=== PATIENT | male | born 1940 ===

== ENCOUNTER 2024-01-14 16:02 | Emergency (ER) | payer OTHER ==
[~2024-01-14] VITALS: Ht 177.8 cm; Wt 124.7 kg
[2024-01-14 17:55] LABS: BASOPHILS ABSOLUTE AUTO 0.05 K/mm3 (0.00-0.23); BASOPHILS PERCENT AUTO 1 % (0-2); EOSINOPHILS ABSOLUTE AUTO 0.19 K/mm3 (0.00-0.68); EOSINOPHILS PERCENT AUTO 3 % (0-6); Hematocrit 48.8 % (37.0-53.0); Hemoglobin 16.1 g/dL (13.5-17.5); IMMATURE GRAN ABSOLUTE AUTO 0.05 K/mm3 (0.00-0.10); IMMATURE GRAN PERCENT AUTO 1 % (0-1); LYMPHOCYTES ABSOLUTE AUTO 1.29 K/mm3 (0.84-5.20); LYMPHOCYTES PERCENT AUTO 17 % (21-46); MONOCYTES ABSOLUTE AUTO 0.71 K/mm3 (0.16-1.47); MONOCYTES PERCENT AUTO 9 % (4-13); Mean Corpuscular HGB 28.6 pg (26.0-34.0); Mean Corpuscular Volume 87 fL (80-100); Mean Platelet Volume 10.1 fL (9.1-12.4); NEUTROPHILS PERCENT AUTO 70 % (41-73); Platelet Count 151 K/mm3 (150-400); RDW Coefficient Variation 13.7 % (11.7-14.2); RDW Standard Deviation 43.4 fL (35.1-46.3); Red Blood Cell Count 5.63 M/mm3 (4.30-5.90); White Blood Cell Count 7.69 K/mm3 (4.00-11.30)
[2024-01-14 18:09] LABS: Influenza A, PCR NEGATIVE (NEGATIVE); Influenza B, PCR NEGATIVE (NEGATIVE); Resp Syncytial Virus, PCR NEGATIVE (NEGATIVE); SARS-Cov-2 (COVID-19) PCR, MMC NEGATIVE (NEGATIVE)
[2024-01-14 18:15] LABS: Albumin, Blood 3.5 g/dL (3.4-5.0); Bilirubin, Total 0.8 mg/dL (0.1-1.0); Bun/Creatinine Ratio 17.3 (12.0-20.0); Calcium, Blood 8.9 mg/dL (8.5-10.1); Creatinine, Blood 0.98 mg/dL (0.60-1.20); Globulin, Blood 3.6 g/dL (2.2-4.0); Potassium, Blood 3.9 mmol/L (3.5-5.5); Total Protein, Blood 7.1 g/dL (6.4-8.2)
[2024-01-14] MEDS ORDERED: Bacitracin Zinc Oint 1GRAM UD Packet TOP ONE (23:50)
== END 2024-01-15 00:17 | disposition home or self-care (01) ==
LOC: ER 16:02
PROVIDERS: Physician Assistant
DX: R60.0 Localized edema (principal); R06.02 Shortness of breath
CPT/HCPCS: 0241U; 71046; 80053; 83880; 84484; 85025; 93005; 93010; 99285-25

== ENCOUNTER 2024-04-28 15:01 | Inpatient (IN) | payer OTHER ==
[~2024-04-28] VITALS: Ht 182.9 cm; Wt 135.5 kg
[2024-04-28 15:30] VITALS: BP 165/79
[2024-04-28] MEDS ORDERED: Acetaminophen 325 MG TABLET PO PRN (16:05)
[2024-04-28] MEDS ORDERED: Furosemide 10 MG/ML 4ML Vial IV SCH (17:00)
[2024-04-28 17:09] LABS: BASOPHILS ABSOLUTE AUTO 0.03 K/mm3 (0.00-0.23); BASOPHILS PERCENT AUTO 0 % (0-2); EOSINOPHILS ABSOLUTE AUTO 0.18 K/mm3 (0.00-0.68); EOSINOPHILS PERCENT AUTO 2 % (0-6); Hematocrit 51.1 % (37.0-53.0); Hemoglobin 16.2 g/dL (13.5-17.5); IMMATURE GRAN ABSOLUTE AUTO 0.03 K/mm3 (0.00-0.10); IMMATURE GRAN PERCENT AUTO 0 % (0-1); LYMPHOCYTES ABSOLUTE AUTO 1.36 K/mm3 (0.84-5.20); LYMPHOCYTES PERCENT AUTO 17 % (21-46); MONOCYTES ABSOLUTE AUTO 0.79 K/mm3 (0.16-1.47); MONOCYTES PERCENT AUTO 10 % (4-13); Mean Corpuscular HGB 28.9 pg (26.0-34.0); Mean Corpuscular HGB Conc 31.7 g/dL (31.5-36.5); Mean Corpuscular Volume 91 fL (80-100); Mean Platelet Volume 10.4 fL (9.1-12.4); NEUTROPHILS ABSOLUTE AUTO 5.63 K/mm3 (1.96-9.15); NEUTROPHILS PERCENT AUTO 70 % (41-73); Platelet Count 124 K/mm3 (150-400); RDW Coefficient Variation 13.9 % (11.7-14.2); RDW Standard Deviation 46.7 fL (35.1-46.3); White Blood Cell Count 8.02 K/mm3 (4.00-11.30)
[2024-04-28 17:29] LABS: Magnesium, Blood 2.2 mg/dL (1.6-2.4)
[2024-04-28 17:30] LABS: Thyroid Stimulating Hormone 2.3 uIU/mL (0.360-4.800)
--- NOTE | 2024-04-28 18:00 | NUR ---
SHIFT SUMMARY PATIENT ADMITTED TO MEDICAL FLOOR. PATIENT ALERT AND INTERACTIVE BUT [place] AND FORGETFUL. PATIENT REPEATEDLY ASKING WHEN HE IS GOING BACK HOME. PATIENT EASILY SOB. PATIENT STATES THAT HE USES HIS CPAP BLOW BY WHEN HE NEEDS AIR. PATIENT ALSO REPORTS THAT HE USES A LOT OF SALT WITH HIS MEALS. EDUCATION PROVIDED RELATED TO SALT INTAKE AND FLUID INTAKE. WILL HAVE RT WORK WITH PATIENT ON PROPER USE OF CPAP.
[2024-04-28] MEDS ORDERED: Albuterol 2.5 MG/3 ML VIAL INH PRN (18:15)
[2024-04-28 19:52] VITALS: BP 155/88
[2024-04-28 19:56] VITALS: BP 147/88
[2024-04-28 19:57] LABS: Albumin, Blood 3.2 g/dL (3.4-5.0); Albumin/Globulin Ratio 0.9 (0.8-1.8); Bun/Creatinine Ratio 14.1 (12.0-20.0); Calcium, Blood 8.9 mg/dL (8.5-10.1); Creatinine, Blood 0.92 mg/dL (0.60-1.20); Globulin, Blood 3.5 g/dL (2.2-4.0); Potassium, Blood 4.7 mmol/L (3.5-5.5); Total Protein, Blood 6.7 g/dL (6.4-8.2)
[2024-04-28] MEDS ORDERED: Apixaban 5 MG Tab PO SCH (21:00)
[2024-04-28] MEDS ORDERED: QUEtiapine Fumarate 25 MG Tab PO SCH (21:00)
[2024-04-28] MEDS ORDERED: Haloperidol Lactate Inj. 5 MG/ML Injection IV ONE (21:45)
[2024-04-28] MEDS ORDERED: Haloperidol Lactate Inj. 5 MG/ML Injection IV PRN (21:45)
[2024-04-28 21:46] VITALS: BP 171/119
--- NOTE | 2024-04-28 23:11 | NUR ---
Aggitation: Orders were obtained from Doctor Garcia for a now dose of haldol. Patient was calmly sitting on the bed with his gowned of. Patient was told that Dr Garcia had ordered some medication to calm him down. Patient agreed to administration of haldol. Patient was then assisted to the bathroom to void, he refused to use the urinal at the bedside. Sitter has patient in constant observation.
--- NOTE | 2024-04-29 04:05 | NUR ---
Aggitation: Patient was sitting on the edge of the bed putting his pants on and asking for help with his shoes. Patient is getting dressed so he is ready to leave when the doctor comes in the morning. Insurance Follow Up Specialist attempted to give a PRN dose of haldol. Patient refuses haldol and states "I will stay until the doctor comes in the morning". A recliner is brought into the room as the patient refuses to lay down in the bed and is sitting on the edge of the bed. Maurice has patient in eye site at all times. Patient also refuses continuos pulse OX and telemetry at this time.
--- NOTE | 2024-04-29 04:37 | NUR ---
Refusal of care: Patient is refusing AM labs. Patient is fully dressed and sitting on the edge of the bed. Sitter has patient in sight at all times.
[2024-04-29 07:50] VITALS: BP 147/87
[2024-04-29 07:51] VITALS: BP 147/87
[2024-04-29 08:56] LABS: BASOPHILS ABSOLUTE AUTO 0.03 K/mm3 (0.00-0.23); BASOPHILS PERCENT AUTO 0 % (0-2); EOSINOPHILS ABSOLUTE AUTO 0.06 K/mm3 (0.00-0.68); EOSINOPHILS PERCENT AUTO 1 % (0-6); Hematocrit 51.7 % (37.0-53.0); Hemoglobin 16.8 g/dL (13.5-17.5); IMMATURE GRAN ABSOLUTE AUTO 0.02 K/mm3 (0.00-0.10); IMMATURE GRAN PERCENT AUTO 0 % (0-1); LYMPHOCYTES ABSOLUTE AUTO 1.02 K/mm3 (0.84-5.20); LYMPHOCYTES PERCENT AUTO 11 % (21-46); MONOCYTES ABSOLUTE AUTO 0.93 K/mm3 (0.16-1.47); MONOCYTES PERCENT AUTO 10 % (4-13); Mean Corpuscular HGB Conc 32.5 g/dL (31.5-36.5); Mean Corpuscular Volume 89 fL (80-100); Mean Platelet Volume 10.4 fL (9.1-12.4); NEUTROPHILS PERCENT AUTO 79 % (41-73); Platelet Count 149 K/mm3 (150-400); RDW Coefficient Variation 13.9 % (11.7-14.2); RDW Standard Deviation 45.7 fL (35.1-46.3); Red Blood Cell Count 5.79 M/mm3 (4.30-5.90); White Blood Cell Count 9.76 K/mm3 (4.00-11.30)
[2024-04-29] MEDS ORDERED: Empagliflozin 10 MG TAB PO SCH (09:00)
[2024-04-29] MEDS ORDERED: Tamsulosin HCl 0.4 MG Cap PO SCH (09:00)
[2024-04-29 09:11] LABS: Bun/Creatinine Ratio 15.3 (12.0-20.0); Calcium, Blood 8.9 mg/dL (8.5-10.1); Creatinine, Blood 0.92 mg/dL (0.60-1.20); Potassium, Blood 3.6 mmol/L (3.5-5.5)
[2024-04-29 19:01] VITALS: BP 127/83
--- NOTE | 2024-04-29 19:52 | NUR ---
DAY SHIFT SUMMARY: A&Ox1-2. 1:1 SITTER AND CONTINUED TO ATTEMPT TO WANDER HALLS, OFTEN WITH PANTS FALLING AROUND HIS ANKLES. TELE KEPT NEEDIN GOT BE REAPPLIED. REQUIRES FREQUENT REDIRECTION AND REMINDERS. FIXATED ON GETTING MONEY OUT OF BANK AND NEW UNDERWEAR. SHOWERED TODAY DUE. POLYURIA WITH FREQUENCY AND URGENCY SECONDARY TO IV FUROSEMIDE x2. REFUSES CONDOM CATH. ENJOYS PEOPLE-WATCHING, SHARRI VIRAMONTES RN WITH THE [facility]. REFUSED LUNCH BUT ATE DINNER. ECHO COMPLETED AND CARDIOLOGY CONSULTED. LARGE, HARD, EDEMATOUS BRUISE NOTED TO LEFT HIP. DR SHARP NOTIFIED. REPORT TO ONCOMING RN.
--- NOTE | 2024-04-29 23:53 | NUR ---
PT A&Ox1 AND BELIEVES HE IS AT THE [facility]. NOT ABLE TO BE REORIENTED AT THIS TIME. PT INSISTS HE CAN STAY FOR "A LITTLE LONGER" BUT THAT HE IS GOING HOME "BY 10", THIS EVENING. COOPERATIVE OF CARE BUT LIABLE. 4+ BLE EDEMA. 1:1 SITTER AT BEDSIDE. PT MOVED TO ROOM 350 IN SCU. ALL BELONGINGS SENT WITH PT. REPORT GIVEN TO JEFFREY.
[2024-04-30 03:53] VITALS: BP 145/67
--- NOTE | 2024-04-30 04:54 | NUR ---
SHIFT SUMMARY DANITZA WAS ALERT AND ORIENTED TO SELF ONLY WHEN HE WAS TRANSFERED TO MY CARE AROUND 2100. PT IS VERY EDEMATOUS. 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 PT WAS CONFUSED BUT DIRECTABLE THIS SHIFT AND SLEPT SOUNDLY T/O THE NIGHT. NO ACUTE EVENTS, PT SLEEPING IN BED AT A LOW POSITION WITH CALL LIGHT IN REACH WHICH HE DOES NOT USE APPROPRIATELY. PT WAS CONTINENT AND STOOD TO USE URINAL AT BEDSIDE WITH FWW AND 1 ASSIST.
[2024-04-30 07:49] VITALS: BP 136/75
[2024-04-30] MEDS ORDERED: Carvedilol 3.125 MG Tab PO SCH (09:15)
[2024-04-30 09:22] LABS: BASOPHILS ABSOLUTE AUTO 0.03 K/mm3 (0.00-0.23); BASOPHILS PERCENT AUTO 0 % (0-2); EOSINOPHILS ABSOLUTE AUTO 0.18 K/mm3 (0.00-0.68); EOSINOPHILS PERCENT AUTO 2 % (0-6); Hematocrit 47.5 % (37.0-53.0); IMMATURE GRAN ABSOLUTE AUTO 0.05 K/mm3 (0.00-0.10); IMMATURE GRAN PERCENT AUTO 1 % (0-1); LYMPHOCYTES ABSOLUTE AUTO 1.17 K/mm3 (0.84-5.20); LYMPHOCYTES PERCENT AUTO 12 % (21-46); MONOCYTES ABSOLUTE AUTO 0.65 K/mm3 (0.16-1.47); MONOCYTES PERCENT AUTO 7 % (4-13); Mean Corpuscular HGB 28.8 pg (26.0-34.0); Mean Corpuscular HGB Conc 31.6 g/dL (31.5-36.5); Mean Corpuscular Volume 91 fL (80-100); Mean Platelet Volume 10.5 fL (9.1-12.4); NEUTROPHILS ABSOLUTE AUTO 7.35 K/mm3 (1.96-9.15); NEUTROPHILS PERCENT AUTO 78 % (41-73); Platelet Count 131 K/mm3 (150-400); RDW Standard Deviation 46.8 fL (35.1-46.3); White Blood Cell Count 9.43 K/mm3 (4.00-11.30)
[2024-04-30 10:02] LABS: Bun/Creatinine Ratio 20.8 (12.0-20.0); Calcium, Blood 8.7 mg/dL (8.5-10.1); Creatinine, Blood 0.92 mg/dL (0.60-1.20); Potassium, Blood 3.5 mmol/L (3.5-5.5)
--- NOTE | 2024-04-30 15:50 | NUR ---
SHIFT SUMMARY: PATIENT A/O TO SELF ONLY, CONFUSED AT TIMES, ABLE TO FOLLOW SIMPLE COMMAND, PLEASANT AND COOPERATIVE c CARE. PATIENT DENIES CP/PRESSURE, SOB, DIZZINESS AND GENERALIZED PAIN. PATIENT ON TELE, AFIB HR IN THE 80'S BPM c OCCASIONAL BBB. PATIENT HAS PLUS 3 EDEMA TO BLE, TRACES TO BUE'S, RECEIVED IV LASIX, CONT/INCON OF BLADDER, USES URINAL c ASSISTANCE AND AMBULATES TO BATHROOM/BACK IN BED c 1 ASSIST/FWW/GAITBELT. PATIENT HAD PT EVAL TODAY. PT RECOMMENDING SERVICES. PATIENT HAS 1:1 SITTER FOR SAFETY. PATIENT IS EATING AND DRINKING WELL. RECEIVED SCHEDULED MEDS PER EMAR. VITAL SIGNS REVIEWED. PATIENT LAYING IN BED AT THIS TIME c BLE'S ELEVATED ON PILLOWS. BED ALARM ON FOR SAFETY. CALL LIGHT IN REACH.
[2024-04-30 17:42] VITALS: BP 145/67
[2024-04-30 20:03] VITALS: BP 121/69
--- NOTE | 2024-05-01 04:36 | NUR ---
SHIFT SUMMARY PATIENT IS ALERT AND ORIENTED X2. PATIENT HAS HAD NO ACUTE EVENTS THIS SHIFT. PATIENT IS BEING DIUREASED. PATIENT HAS BEEN USING URINAL WITH ASSISTANCE. PATIENT IS ON TELE, AFIB WITH RATE IN THE 90S. PATIENT HAS BEEN CONFUSED BUT IS REDIRECTABLE. PATIENT HAS HAD NO COMPLAINTS OF PAIN, NAUSEA, SOB, OR VOMITTING THIS SHIFT. BED IN LOCKED AND LOWEST POSITION. CALL LIGHT IN PLACE. WILL MONITOR UNTIL SHIFT CHANGE.
[2024-05-01 05:23] VITALS: BP 124/77
[2024-05-01 05:35] LABS: BASOPHILS ABSOLUTE AUTO 0.04 K/mm3 (0.00-0.23); BASOPHILS PERCENT AUTO 0 % (0-2); EOSINOPHILS ABSOLUTE AUTO 0.29 K/mm3 (0.00-0.68); EOSINOPHILS PERCENT AUTO 3 % (0-6); Hematocrit 45.6 % (37.0-53.0); Hemoglobin 14.3 g/dL (13.5-17.5); IMMATURE GRAN ABSOLUTE AUTO 0.05 K/mm3 (0.00-0.10); IMMATURE GRAN PERCENT AUTO 0 % (0-1); LYMPHOCYTES ABSOLUTE AUTO 1.16 K/mm3 (0.84-5.20); LYMPHOCYTES PERCENT AUTO 10 % (21-46); MONOCYTES ABSOLUTE AUTO 1.12 K/mm3 (0.16-1.47); MONOCYTES PERCENT AUTO 10 % (4-13); Mean Corpuscular HGB 28.9 pg (26.0-34.0); Mean Corpuscular HGB Conc 31.4 g/dL (31.5-36.5); Mean Corpuscular Volume 92 fL (80-100); Mean Platelet Volume 10.8 fL (9.1-12.4); NEUTROPHILS ABSOLUTE AUTO 8.52 K/mm3 (1.96-9.15); NEUTROPHILS PERCENT AUTO 76 % (41-73); Platelet Count 137 K/mm3 (150-400); RDW Standard Deviation 47.7 fL (35.1-46.3); Red Blood Cell Count 4.94 M/mm3 (4.30-5.90); White Blood Cell Count 11.18 K/mm3 (4.00-11.30)
[2024-05-01 05:55] LABS: Bun/Creatinine Ratio 21.3 (12.0-20.0); Calcium, Blood 8.9 mg/dL (8.5-10.1); Creatinine, Blood 1.08 mg/dL (0.60-1.20); Potassium, Blood 3.3 mmol/L (3.5-5.5)
[2024-05-01 07:12] VITALS: BP 132/72
--- NOTE | 2024-05-01 07:31 | NUR ---
AM NOTE: PATIENT K 3.3 SLIGHTLY DOWN FROM YESTERDAY. NOTIFIED DR. SHARP. PER DR. SHARP SHE WILL PUT ORDER IN.
[2024-05-01] MEDS ORDERED: Potassium Chloride 20 MEQ TabCR PO SCH (09:00)
[2024-05-01 14:55] VITALS: BP 142/75
--- NOTE | 2024-05-01 15:48 | NUR ---
SHIFT SUMMARY: PATIENT A/O TO SELF, PLEASANTLY CONFUSED AND EASILY REDIRECTABLE. PATIENT EDEMA TO BLE'S HAS IMPROVED, DIURESED c IV LASIX PER EMAR, RESPONDING WELL. PATIENT DENIES CP/PRESSURE, DIZZINESS, N/V AND GENEARLIZED PAIN. PATIENT STILL ON TELE, AFIB HR IN THE HIGH 80'S BPM. PATIENT K 3.[address] AM[address] SHARP STARTED PATIENT ON PO K TODAY, REPEAT LAB IN AM. PATIENT CONTINENCE OF BOWEL/BLADDER, AMBULATES TO BATHROOM c 1 ASSIST/FWW. PATIENT UP IN THE CHAIR AND STAYED ABOUT 4 HRS TOTAL THIS SHIFT, TOLERATED WELL. PATIENT RESTING IN BED ON/OFF c BLE'S ELEVATED ON PILLOWS T/O SHIFT. PATIENT HAS 1:1 SITTER FOR SAFETY. VITAL SIGNS REVIEWED. PATIENT HAS NO COMPLAINTS OR DENIES NEW CONCERNED THIS SHIFT. CALL LIGHT IN REACH.
--- NOTE | 2024-05-01 17:43 | NUR ---
ADDITIONAL NOTE: PATIENT ON 2L O2 VIA NC c SPO2 ABOVE 90%. LUNGS DIM T/O TO AUSCULTATION.
[2024-05-01 19:54] VITALS: BP 123/84
--- NOTE | 2024-05-02 03:36 | NUR ---
ACADEMIC AFFAIRS MANAGER SUMMARY VSS. ORIENTED TO SELF, VERBAL RESPONSE SOMEWHAT CONFUSED. MED TELE AFIB. O2 AT 2L PER NC. HOB ELEVATED FOR COMFORT AND BREATHING. 1:1 SITTER AT BEDSIDE - HX FALLS. 1200 CC H2O FLUID RESTRICTION CONTINUES HE IS BEING DIURESED, SWELLING/ EDEMA OF BLE 2-3+. MED TELE AFIB. HAS BEEN RESTING QUIETLY WITH FEW INTERRUPTIONS. HOB REMAINS ELEVATED FOR RESP COMFORT. CALL LIGHT IN REACH, RAILS UP X 3 AND BED IN LOW POSITION FOR SAFETY. WILL CONTINUE TO MONITOR.
[2024-05-02 05:00] VITALS: BP 141/87
[2024-05-02 05:25] LABS: BASOPHILS ABSOLUTE AUTO 0.01 K/mm3 (0.00-0.23); BASOPHILS PERCENT AUTO 0 % (0-2); EOSINOPHILS ABSOLUTE AUTO 0.18 K/mm3 (0.00-0.68); EOSINOPHILS PERCENT AUTO 2 % (0-6); Hematocrit 44.3 % (37.0-53.0); Hemoglobin 13.9 g/dL (13.5-17.5); IMMATURE GRAN ABSOLUTE AUTO 0.05 K/mm3 (0.00-0.10); IMMATURE GRAN PERCENT AUTO 0 % (0-1); LYMPHOCYTES ABSOLUTE AUTO 1.02 K/mm3 (0.84-5.20); LYMPHOCYTES PERCENT AUTO 9 % (21-46); MONOCYTES ABSOLUTE AUTO 1.17 K/mm3 (0.16-1.47); MONOCYTES PERCENT AUTO 10 % (4-13); Mean Corpuscular HGB Conc 31.4 g/dL (31.5-36.5); Mean Corpuscular Volume 93 fL (80-100); NEUTROPHILS ABSOLUTE AUTO 8.78 K/mm3 (1.96-9.15); NEUTROPHILS PERCENT AUTO 78 % (41-73); Platelet Count 141 K/mm3 (150-400); RDW Coefficient Variation 13.9 % (11.7-14.2); RDW Standard Deviation 47.8 fL (35.1-46.3); Red Blood Cell Count 4.79 M/mm3 (4.30-5.90); White Blood Cell Count 11.21 K/mm3 (4.00-11.30)
[2024-05-02 05:56] LABS: Bun/Creatinine Ratio 27.3 (12.0-20.0); Calcium, Blood 8.9 mg/dL (8.5-10.1); Creatinine, Blood 0.99 mg/dL (0.60-1.20); Potassium, Blood 3.4 mmol/L (3.5-5.5)
[2024-05-02 07:49] VITALS: BP 118/76
[2024-05-02 14:42] VITALS: BP 138/65
--- NOTE | 2024-05-02 16:35 | NUR ---
SHIFT SUMMARY: PATIENT A/O TO SELF ONLY, PLEASANTLY CONFUSED AND EASILY REDIRECTABLE. PATIENT HEMATOMA TO L HIP HAS SPREAD. DR. THOMAS (ORTHO) WAS CONSULTED AND ORDERED CT c CONTRAST TO SITE. CT RESULT IS AVAILABLE FOR REVIEW, AWAITING FOR DR. THOMAS TO SEE PATIENT FOR CONSULT. PATIENT EDEMA TO BLE'S HAS IMPROVED AND IS BEING DIURESED c IV LASIX, CONDOM CATH IN PLACED, CONNECTED TO BOATENG BAG AND TOLERATING WELL. PATIENT HAD 3 LARGE SOFT, BROWN BM THIS SHIFT. PATIENT STILL ON 2L O2 VIA NC SAT ABOVE 90%. PATIENT DENIES CP/PRESSURE, N/V AND DIZZINESS. PATIENT ON TELE, AFIB HR IN THE HIGH 80'S BPM c OCCASIONAL PVC. VITAL SIGNS REVIEWED. PATIENT HAS 1:1 CLINICAL SITTER, BED ALARM ON FOR SAFETY. CALL LIGHT IN REACH.
[2024-05-02 20:41] VITALS: BP 126/71
--- NOTE | 2024-05-02 21:34 | NUR ---
TOOK OVER FOR PRIMARY NURSE WHEN HE TOOK HIS BREAK. PT DENIES NEEDS AT THIS TIME.
[2024-05-03] MEDS ORDERED: JARDIANCE10 MG PO (02:20)
[2024-05-03] MEDS ORDERED: CARV6.25 PO (02:20)
[2024-05-03] MEDS ORDERED: FURO20 PO (02:21)
[2024-05-03] MEDS ORDERED: SPIR25 PO (02:21)
[2024-05-03] MEDS ORDERED: POTCHL20ER PO (02:21)
[2024-05-03] MEDS ORDERED: QUET25 PO (02:22)
[2024-05-03] MEDS ORDERED: ELIQUIS5 M2 PO (02:22)
[2024-05-03] MEDS ORDERED: TAMS.4ER PO (02:22)
--- NOTE | 2024-05-03 04:10 | NUR ---
HORIZONTAL DRILL OPERATOR SUMMARY RESPS ELEVATED, OTHERWISE VSS. SATS IN 90'S. LUNG SOUNDS DIMINIISHED. REMAINS ON 1200 CC H2O RESTRICTION FOR CHF AND SEVERE EDEMA. DIURESING. ANGRY RE FLUID RESTRICTION. STAFF CONTINUE TO DISCUSS, TEACH RE RESTRICTION, ETC, BUT PT EASILY AGITATED TO COMPLY. HAS BEEN RESTING WITH OCCASIONAL INTERUPTION. O2 PER NC AT 2L/MIN PER NC. MED TELE AFIB IN THE 70'S. CALL LIGHT IN REACH, RAILS UP X 3, BED IN LOW POSITION AND 1:1 STAFF OBSERVATION FOR SAFETY. WILL CONTINUE TO WORK WITH PT FOR HIS HEALTH AND SAFETY.
--- NOTE | 2024-05-03 04:22 | NUR ---
ASSUMED CARE OF PT WHILE PRIMARY RN ON BREAK. PT KEEPS YELLING THAT HE IS THIRSTY AND WANTS WATER. SAT WITH PT AND DISCUSSED WHY HE IS ON STRICK FLUID RESTRICTION AND WHEN HE WOULD BE ABLE TO DRINK AGAIN. ASKED PT IF HE WOULD LIKE A TOOTHETTE DIPPED IN WATER TO WET HIS MOUTH. PT AGREED. PT SAID HE WOULD TRY TO GET SOME SLEEP AFTER THAT. PT RESTING IN BED.
[2024-05-03 04:42] VITALS: BP 119/82
[2024-05-03 04:45] LABS: BASOPHILS ABSOLUTE AUTO 0.03 K/mm3 (0.00-0.23); BASOPHILS PERCENT AUTO 0 % (0-2); EOSINOPHILS ABSOLUTE AUTO 0.18 K/mm3 (0.00-0.68); EOSINOPHILS PERCENT AUTO 2 % (0-6); Hematocrit 42.8 % (37.0-53.0); Hemoglobin 13.4 g/dL (13.5-17.5); IMMATURE GRAN ABSOLUTE AUTO 0.04 K/mm3 (0.00-0.10); IMMATURE GRAN PERCENT AUTO 0 % (0-1); LYMPHOCYTES ABSOLUTE AUTO 1.04 K/mm3 (0.84-5.20); LYMPHOCYTES PERCENT AUTO 10 % (21-46); MONOCYTES ABSOLUTE AUTO 1.01 K/mm3 (0.16-1.47); MONOCYTES PERCENT AUTO 10 % (4-13); Mean Corpuscular HGB 28.8 pg (26.0-34.0); Mean Corpuscular HGB Conc 31.3 g/dL (31.5-36.5); Mean Corpuscular Volume 92 fL (80-100); Mean Platelet Volume 10.6 fL (9.1-12.4); NEUTROPHILS ABSOLUTE AUTO 8.25 K/mm3 (1.96-9.15); NEUTROPHILS PERCENT AUTO 78 % (41-73); Platelet Count 167 K/mm3 (150-400); RDW Coefficient Variation 13.9 % (11.7-14.2); RDW Standard Deviation 47.2 fL (35.1-46.3); Red Blood Cell Count 4.65 M/mm3 (4.30-5.90); White Blood Cell Count 10.55 K/mm3 (4.00-11.30)
[2024-05-03 05:04] LABS: Bun/Creatinine Ratio 27.1 (12.0-20.0); Calcium, Blood 8.8 mg/dL (8.5-10.1); Creatinine, Blood 0.89 mg/dL (0.60-1.20); Potassium, Blood 3.3 mmol/L (3.5-5.5)
[2024-05-03 07:25] VITALS: BP 132/78
[2024-05-03] MEDS ORDERED: CeFAZolin Sodium 1,000 MG in NS 50 ML IV SCH (13:22)
[2024-05-03 15:41] VITALS: BP 142/80
--- NOTE | 2024-05-03 18:29 | NUR ---
SHIFT SUMMARY A&OX2, COOPERATIVE AND REDIRECTABLE. DENIED ANY CP/PRESSURE, HEADACHE, DIZZINESS, OR SOB. CURRENTLY ON 2L O2 VIA NC, SATS >92%. DENIES ANY PAIN THIS SHIFT. NO ACUTE EVENTS. LUNG SOUNDS DIM T/O. TELE DC'D. 1:1 SITTER DC'D. PATIENT CALLING APPROPRIATELY AND NOT SHOWING SIGNS OF AGGRESSION AT THIS TIME. BED ALARM ON. PATIENT CURRENTLY SLEEPING. BED IN THE LOWEST POSITION. CALL LIGHT WITHIN REACH.
[2024-05-03 19:30] VITALS: BP 155/92
[2024-05-03] MEDS ORDERED: Lactobacil 2-S.Thermo-Bifido 1 1 Cap PO SCH (21:00)
--- NOTE | 2024-05-03 23:13 | NUR ---
VERY AGITATED, UNSTEADY ON FEET, REFUSED TO USE WALKER, THREW URINAL AT NURSE. HIGH POTENTIAL FOR FALLS, HX OF FALLS. MD NOTIFIED AND ORDER FOR MIRNA OBTAINED AND APPLIED. CONDOM CATH APPLIED FOR URINE MONITORING. CALL LIGHT IN REACH. WILL CONT TO MONITOR.
[2024-05-04] MEDS ORDERED: Melatonin 5 MG Tablet PO SCH (01:00)
[2024-05-04] MEDS ORDERED: LORazepam 2 MG/ML 1ML Injection IV ONE (01:30)
[2024-05-04 03:57] VITALS: BP 163/85
[2024-05-04 04:33] LABS: BASOPHILS ABSOLUTE AUTO 0.03 K/mm3 (0.00-0.23); BASOPHILS PERCENT AUTO 0 % (0-2); EOSINOPHILS ABSOLUTE AUTO 0.09 K/mm3 (0.00-0.68); EOSINOPHILS PERCENT AUTO 1 % (0-6); Hematocrit 44.9 % (37.0-53.0); Hemoglobin 14.2 g/dL (13.5-17.5); IMMATURE GRAN ABSOLUTE AUTO 0.04 K/mm3 (0.00-0.10); IMMATURE GRAN PERCENT AUTO 0 % (0-1); LYMPHOCYTES ABSOLUTE AUTO 0.98 K/mm3 (0.84-5.20); LYMPHOCYTES PERCENT AUTO 9 % (21-46); MONOCYTES ABSOLUTE AUTO 1.11 K/mm3 (0.16-1.47); MONOCYTES PERCENT AUTO 10 % (4-13); Mean Corpuscular HGB 29.1 pg (26.0-34.0); Mean Corpuscular HGB Conc 31.6 g/dL (31.5-36.5); Mean Corpuscular Volume 92 fL (80-100); Mean Platelet Volume 10.7 fL (9.1-12.4); NEUTROPHILS ABSOLUTE AUTO 8.46 K/mm3 (1.96-9.15); NEUTROPHILS PERCENT AUTO 79 % (41-73); Platelet Count 168 K/mm3 (150-400); RDW Coefficient Variation 13.8 % (11.7-14.2); Red Blood Cell Count 4.88 M/mm3 (4.30-5.90); White Blood Cell Count 10.71 K/mm3 (4.00-11.30)
[2024-05-04 04:50] LABS: Bun/Creatinine Ratio 29.3 (12.0-20.0); Creatinine, Blood 0.96 mg/dL (0.60-1.20); Potassium, Blood 3.2 mmol/L (3.5-5.5)
--- NOTE | 2024-05-04 05:58 | NUR ---
CLERICAL CLERK SUMMARY BP ELEVATED, BUT HAS BEEN ANXIOUS AND DEFIANT WITH TREATMENT, OTHERWISE VSS. GOT OOB, UNSTEADY ON FEET, REFUSING TO USE WALKER AND THREW URINAL AT STAFF WHEN STAFF TRIED TO ASSIST. ASSISTED BACK TO BED AND PLACED IN MIRNA FOR SAFETY PER MD ORDER, THEN PULLED OUT IV AND REFUSED MEDS WHEN IN BED. MD NOTIFIED AGAIN AND MIRNA DC'D AND PLACED IN 4 POINT RESTRAINTS TO PREVENT FURTHER SELF DESTRUCTIVE BEHAVIOR. IV ANTIBIOTICS INFUSING AFTER NEW IV PLACED. HOB ELEVATED AND ON O2 PER NC (REPLACED AFTER HE TORE UP PREVIOUS ONE) O2 SATS LATEST 100%. FINALLY RESTING QUIETLY. CIRCULATION CHECKED PER RESTRAINT POLICY. CALL LIGHT IN REACH, RAILS UP AND BED IN LOW POSITION FOR SAFETY. WILL CONTINUE TO ASSESS AND WHEN ABLE TO DC RESTRAINTS, WILL DO SO.
[2024-05-04 07:24] VITALS: BP 152/64
[2024-05-04 16:01] VITALS: BP 170/93
[2024-05-04] MEDS ORDERED: NS 250 ML IV PRN (16:20)
[2024-05-04] MEDS ORDERED: Potassium Chloride 20 MEQ TabCR PO SCH (17:00)
[2024-05-04] MEDS ORDERED: QUEtiapine Fumarate 50 MG TAB PO SCH (17:00)
--- NOTE | 2024-05-04 17:20 | NUR ---
SHIFT SUMMARY A&OX1, COOPERATIVE, PARANOIA NOTED, ABLE TO BE REDIRECTED. TOUGH CUFFS REMOVED THIS AM. PATIENT HAS USED CALL LIGHT APPROPRIATELY. NO ACUTE EVENTS THIS SHIFT. VSS, ELEVATED SBP 170. SCHEDULED COREG ADMINISTERED. DENIED ANY CP/PRESSURE, HEADACHE, DIZZINESS, OR SOB. O2 SATS REMAINED >92% ON 2L VIA NC. PAIN TO RLE, CONTINUES TO BE INFLAMED AND WARM TO TOUCH. KEPT BLE ELEVATED T/O SHIFT. SEROQUEL GIVEN AT 1620. PATIENT NOTED TO BE DROWSY AT 1715. WILL CONTINUE TO MONITOR. BED IN THE LOWEST POSITION. CALL LIGHT WITHIN REACH.
[2024-05-04 20:25] VITALS: BP 153/84
[2024-05-05 02:55] VITALS: BP 142/72
--- NOTE | 2024-05-05 05:05 | NUR ---
SHIFT SUMMARY. PATIENT A&OX1. PATIENT IS COOPERATIVE WITH CARE. CONDOM CATHETER CHANGED THIS SHIFT. PATIENT HAS BEEN SLEEPING WITH HOB ELEVATED. B/P HAS BEEN STABLE. PATIENT DENIES PAIN. BED IS LOCKED IN THE LOWEST POSITION WITH CALL LIGHT IN REACH. CARE IS ONGOING.
[2024-05-05 05:55] LABS: BASOPHILS ABSOLUTE AUTO 0.03 K/mm3 (0.00-0.23); BASOPHILS PERCENT AUTO 0 % (0-2); EOSINOPHILS ABSOLUTE AUTO 0.14 K/mm3 (0.00-0.68); EOSINOPHILS PERCENT AUTO 2 % (0-6); Hemoglobin 14.7 g/dL (13.5-17.5); IMMATURE GRAN ABSOLUTE AUTO 0.04 K/mm3 (0.00-0.10); IMMATURE GRAN PERCENT AUTO 1 % (0-1); LYMPHOCYTES ABSOLUTE AUTO 0.83 K/mm3 (0.84-5.20); LYMPHOCYTES PERCENT AUTO 10 % (21-46); MONOCYTES ABSOLUTE AUTO 1.01 K/mm3 (0.16-1.47); MONOCYTES PERCENT AUTO 12 % (4-13); Mean Corpuscular HGB 29.2 pg (26.0-34.0); Mean Corpuscular HGB Conc 30.6 g/dL (31.5-36.5); Mean Corpuscular Volume 95 fL (80-100); Mean Platelet Volume 10.7 fL (9.1-12.4); NEUTROPHILS PERCENT AUTO 76 % (41-73); Platelet Count 164 K/mm3 (150-400); RDW Coefficient Variation 13.8 % (11.7-14.2); RDW Standard Deviation 48.5 fL (35.1-46.3); Red Blood Cell Count 5.04 M/mm3 (4.30-5.90); White Blood Cell Count 8.45 K/mm3 (4.00-11.30)
[2024-05-05 06:19] LABS: Bun/Creatinine Ratio 32.4 (12.0-20.0); Calcium, Blood 8.9 mg/dL (8.5-10.1); Creatinine, Blood 0.96 mg/dL (0.60-1.20); Potassium, Blood 3.6 mmol/L (3.5-5.5)
--- NOTE | 2024-05-05 07:13 | NUR ---
ASSUMED CARE: PT RESTING IN BED AT THIS TIME. NO ACUTE NEEDS OR CONCERNS NOTED.
[2024-05-05 07:23] VITALS: BP 152/69
[2024-05-05 11:10] LABS: Base Excess Venous 17.2 mmol/L; Bicarbonate Venous 36.8 mmol/L (24.0-30.0); PCO2 Venous 80.4 mmHg (38-42); pH Blood Venous 7.34 (7.34-7.37)
--- NOTE | 2024-05-05 11:25 | NUR ---
CALL TO DR SHARP TO RELAY PT'S VBG RESULTS. SEE NEW ORDERS. SPOKE WITH RT IN REGARDS TO BIPAP. RT STATED WILL TRY IT BUT WERE NOT OPTIMISTIC DUE TO HISTORY OF JESSICA NONCOMPLIANCE. CALL TO PALLIATIVE CARE TO GIVE THEM A HEADS UP IN REGARDS TO CURRENT PLANS AND RT CONCERNS.
[2024-05-05 15:45] VITALS: BP 134/81
--- NOTE | 2024-05-05 15:52 | NUR ---
PT REQUESTED BIPAP TO COME OFF. WORE IT FOR [address] SHARP WHO INSTRUCTED TO GIVE HIM A BREAK AND TO RECECK VBG NOW. LAB CAME TO COLLECT SPECIMEN. AWAITING RESULTS.
[2024-05-05 16:27] LABS: Base Excess Venous 16.5 mmol/L; PCO2 Venous 77.8 mmHg (38-42); pH Blood Venous 7.34 (7.34-7.37)
--- NOTE | 2024-05-05 18:25 | NUR ---
SHIFT SUMMARY: PT IS CURRENTLY ON 2L O2 VIA NC. INSTRUCTED BY DR TO PLACE BIPAP WITH SLEEP. MORE AWAKE THIS EVENING AFTER WEARING BIPAP FOR 3 HOURS. CO2 SLIGHTLY IMPROVED. NO ACUTE NEEDS AT THIS TIME.
[2024-05-05 19:22] VITALS: BP 114/80
[2024-05-05] MEDS ORDERED: Haloperidol Lactate Inj. 5 MG/ML Injection IV ONE (21:40)
--- NOTE | 2024-05-06 01:51 | NUR ---
PT. IS REFUSING/REMOVING THE PROBE FOR CONTINUOUS OXYGEN SATURATION (BIOX) MONITORING. DURING THIS SHIFT, THE RT, LY FERMIN, AND THIS NURSE REPLACED THE FINGER PROBE- PT. IS TOSSING IT AWAY IMMEDIATELY. TRIED MULTIPLE TIMES, AT SHIFT CHANGE, AT HS, AT MIDNIGHT AND APPROXIMATELY 2AM. PT. ALSO IS REFUSING THE BIPAP WITH MASK, RT ATTEMPTED TO PLACE THE MASK ON THE PATIENT, AT HS AND AFTER THE ONE-TIME HALDOL 5MG WAS ADMINISTERED DURING THIS SHIFT. PT. REFUSED THE NASAL CANNULA AT 3L O2 DURING THE EVENING HOURS. PT. IS WEARING THE NC DURING 0811-3113. HOB>45-50 DEGREES OR MORE. RN NOTIFIED, SOCIAL SCIENCES LECTURER NOTIFIED.
[2024-05-06 02:47] VITALS: BP 147/82
[2024-05-06] MEDS ORDERED: QUEtiapine Fumarate 50 MG TAB PO ONE (03:00)
--- NOTE | 2024-05-06 04:28 | NUR ---
SHIFT SUMMARY PT AGITATED AND YELLING IN LOUD VOICE AT HS, PT REMOVED THE O2 MONITOR PROBE MULTIPLE TIMES DURING THIS SHIFT AND NC, AND BIPAP MASK. PROVIDER NOTIFIED, ONE TIME DOSE SEROUEL 50MG PO ADMINISTERED AT 0242. PT CONTINUES TO PULL THE SAME LINES/CORDS. HOB >45 DEGREES, LEGS ELEVATED IN BED, BED ALARM FOR SAFETY, BED AT THE LOWEST POSITION, CALL LIGHT IN REACH. WILL HAND OFF TO THE INCOMING SHIFT NURSE.
[2024-05-06 05:53] LABS: BASOPHILS ABSOLUTE AUTO 0.03 K/mm3 (0.00-0.23); BASOPHILS PERCENT AUTO 0 % (0-2); EOSINOPHILS PERCENT AUTO 1 % (0-6); Hematocrit 47.1 % (37.0-53.0); Hemoglobin 14.6 g/dL (13.5-17.5); IMMATURE GRAN ABSOLUTE AUTO 0.04 K/mm3 (0.00-0.10); IMMATURE GRAN PERCENT AUTO 0 % (0-1); LYMPHOCYTES ABSOLUTE AUTO 1.05 K/mm3 (0.84-5.20); LYMPHOCYTES PERCENT AUTO 11 % (21-46); MONOCYTES PERCENT AUTO 11 % (4-13); Mean Corpuscular HGB 28.8 pg (26.0-34.0); Mean Corpuscular Volume 93 fL (80-100); Mean Platelet Volume 10.1 fL (9.1-12.4); NEUTROPHILS ABSOLUTE AUTO 7.27 K/mm3 (1.96-9.15); NEUTROPHILS PERCENT AUTO 77 % (41-73); Platelet Count 134 K/mm3 (150-400); RDW Coefficient Variation 13.8 % (11.7-14.2); RDW Standard Deviation 46.6 fL (35.1-46.3); Red Blood Cell Count 5.07 M/mm3 (4.30-5.90); White Blood Cell Count 9.49 K/mm3 (4.00-11.30)
[2024-05-06 06:12] LABS: Bun/Creatinine Ratio 33.9 (12.0-20.0); Calcium, Blood 8.8 mg/dL (8.5-10.1); Creatinine, Blood 1.12 mg/dL (0.60-1.20); Potassium, Blood 3.2 mmol/L (3.5-5.5)
[2024-05-06 07:36] VITALS: BP 146/87
[2024-05-06 08:34] LABS: Bicarbonate Venous 33.9 mmol/L (24.0-30.0); pH Blood Venous 7.32 (7.34-7.37)
[2024-05-06 08:35] LABS: Base Excess Venous 13.9 mmol/L
[2024-05-06] MEDS ORDERED: Furosemide 10 MG/ML 4ML Vial IV SCH (09:00)
--- NOTE | 2024-05-06 09:24 | NUR ---
DR SHARP TO BEDSIDE. PT SIGNIFICANTLY DECLINED LAST TWO DAYS. LABS INDICATE ACIDOTIC. RECOMMEND GOING BACK ON BIPAP. PATIENT QUITE CONFUSED AND LETHARGIC TODAY AND KEEPING MASK ON. SATTING @ 88%-89% ON 3LPM; TAPERED UP TO 6LPM/BIPAP TO MAINTAIN SPO2 >92%. RT NOTIFIED. DR SHARP RECOMMENDING PALLIATIVE/COMFORT CONSULT. WILL CONTACT FAMILY.
--- NOTE | 2024-05-06 10:21 | NUR ---
CALL FROM DAUGHTERMARIO @ 2090 ASKING FOR UPDATE ON HER FATHER. WONDERING WHAT PLAN IS PATIENT IS WANTING TO GO HOME, BUT THE [facility] IS U[facility]BLE TO TAKE HIM BACK AT THIS TIME. INITIALLY DISCUSSED REHAB AT [facility]F PRIOR TO [facility] TO [facility], BUT DR. SHARP LEANING TOWARD COMFORT CARE. DAUGHTER, MARIO, ACTUALLY ASKED ABOUT HOSPICE BEFORE DR VASQUES ABLE TO CALL AND DISCUSS THIS. LET MARIO KNOW DR. SHARP WILL LIKELY CALL HER TO FURTHER DISCUSS.
--- NOTE | 2024-05-06 14:16 | NUR ---
GOALS OF CARE MET WITH PATIENT AND HIS DIL JONNA. DISCUSSED PROGNOSIS AND DIRECTION OF CARE MOVING FORWARD. JONNA REPORTED THAT DANITZA WAS LIVING WITH HIS DAUGHTER SHAY AND HAD MOVED TO THE [facility]NA IN [facility] DUE TO BECOMING INCREASINGLY DIFFICULT TO CARE FOR AT HOME. HE HAS BEEN SLEEPING IN A CHAIR WITH LEGS DOWN HE DOES NOT ELEVATE THEM OR WANT TO SLEEP IN BED, FAMILY HAS TRIED TO ENCOURAGE THIS. HE BEGUN SUNDOWNING IN OCTOBER AND BECOMING INCREASINGLY CONFUSED IN THE EVENINGS. HE RECIEVED A SCOOTER ONE MONTH AGO AND SINCE HAS DECREASED HIS MOBILITY AMBULATING. SINCE BEING IN THE HOSPITAL PATIENT HAS DECLINDE AND HIS DIL HAS REPORTED THAT SHE HAS BEEN SEEING A HUGE DECLINE IN HIS OVERALL HEALTH THE LAST SEVERAL DAYS. HE IS DECLINING TO WEAR HIS BIPAP HERE AND REPORTED THAT HE DOES NOT WEAR HIS CPAP AT HOME. TODAY HE WAS NOT LIFTING HIS LEGS OUT OF BED. I DISCUSSED THIS WITH HIS SON DANITZA OVER THE PHONE HE WAS AGREEABLE TO FOCUSING ON COMFORT.
[2024-05-06] MEDS ORDERED: OLANZapine 10 MG Vial IM ONE (14:40)
[2024-05-06 15:32] VITALS: BP 112/65
--- NOTE | 2024-05-06 18:07 | NUR ---
SHIFT SUMMARY PATIENT ORIENTED TO SELF AND CONFUSED. BOATENG CATHETER PLACED THIS AM D/T RETENTION. PATIENT ON 3L OXYGEN VIA NASAL CANNULA INTERMITTENTLY THROUGHOUT SHIFT D/T REMOVING BIPAP. PATIENT BECAME AGITATED AND MORE CONFUSED THIS AFTERNOON, PRN ZYPREXA GIVEN PER JAN. SINCE ADMINISTRATION OF ZYPREXA PATIENT TOLERATING BIPAP. PATIENT ALSO WITH CONTINUOUS SPO2 MONITORING. PVL OBTAINED TO RIGHT LOWER LEG TODAY DUE TO INCREASED SWELLING AND REDNESS. PATIENT WITH 3+ EDEMA TO BILATERAL LOWER LEGS. FAMILY AT BEDSIDE DURING LUNCH. PATIENT WITH IV ANTIBIOTICS FOR POSSIBLE CELLULITIS TO RIGHT LEG. PATIENT COMPLAINED OF HEADACHE, TYLENOL GIVEN PER JAN. NO OTHER CONCERNS AT THIS TIME.
[2024-05-06 20:03] VITALS: BP 124/85
[2024-05-07 03:35] VITALS: BP 117/61
--- NOTE | 2024-05-07 04:51 | NUR ---
SHIFT SUMMARY. PATIENT IS ALERT TO SELF. PATIENT WEARING BIPAP AT BEGINNING OF SHIFT-PATIENT DESATTING INTO THE 60'S, RT CONTACTED-PATIENT RECOVERED SLOWLY. PATIENT NOW USING AN OXI-MASK AT 5L'S SATTING >90%. PATIENT PLEASANT AND COOPERATIVE WITH CARE. PATIENT PROVIDED SNACKS AND ENSURE THIS SHIFT. PATIENTS BED IS LOCKED IN THE LOWEST POSITION WITH CALL LIGHT IN REACH. CARE IS ONGOING.
[2024-05-07 06:06] LABS: BASOPHILS ABSOLUTE AUTO 0.02 K/mm3 (0.00-0.23); BASOPHILS PERCENT AUTO 0 % (0-2); EOSINOPHILS ABSOLUTE AUTO 0.18 K/mm3 (0.00-0.68); EOSINOPHILS PERCENT AUTO 2 % (0-6); Hematocrit 43.8 % (37.0-53.0); Hemoglobin 13.5 g/dL (13.5-17.5); IMMATURE GRAN ABSOLUTE AUTO 0.04 K/mm3 (0.00-0.10); IMMATURE GRAN PERCENT AUTO 0 % (0-1); LYMPHOCYTES ABSOLUTE AUTO 0.87 K/mm3 (0.84-5.20); LYMPHOCYTES PERCENT AUTO 9 % (21-46); MONOCYTES ABSOLUTE AUTO 0.87 K/mm3 (0.16-1.47); MONOCYTES PERCENT AUTO 9 % (4-13); Mean Corpuscular HGB 28.7 pg (26.0-34.0); Mean Corpuscular HGB Conc 30.8 g/dL (31.5-36.5); Mean Corpuscular Volume 93 fL (80-100); Mean Platelet Volume 10.4 fL (9.1-12.4); NEUTROPHILS ABSOLUTE AUTO 7.39 K/mm3 (1.96-9.15); NEUTROPHILS PERCENT AUTO 79 % (41-73); Platelet Count 162 K/mm3 (150-400); RDW Coefficient Variation 13.6 % (11.7-14.2); RDW Standard Deviation 46.5 fL (35.1-46.3); Red Blood Cell Count 4.71 M/mm3 (4.30-5.90); White Blood Cell Count 9.37 K/mm3 (4.00-11.30)
[2024-05-07 06:31] LABS: Calcium, Blood 8.9 mg/dL (8.5-10.1); Creatinine, Blood 0.98 mg/dL (0.60-1.20); Potassium, Blood 3.5 mmol/L (3.5-5.5)
[2024-05-07 07:21] VITALS: BP 124/69
[2024-05-07 14:42] VITALS: BP 115/79
--- NOTE | 2024-05-07 17:24 | NUR ---
REPORT RECEIVED VERIFIED A/O X 2-3 FORGETFUL BUT COOPERATIVE. PT REPOSITIOPNED THOUGHOUT SHIFT Q 2 AND PRN, BOATENG PATENT, LEGS ELEVATED ON 2 PILLOWS. ASSISTED WITH BEDPAN, WQATERY STOOL NOTED. PT FEEDING SELF AND IS ABLE TO MAKE NEEDS KNOWN OT WORKED WITH PT TODAY AND WAS ABLE TO GET TO SIDE OF BED AAND BACK TO BED. FAMILY AT BEDSIDE WITH PT
[2024-05-07 19:38] VITALS: BP 138/87
[2024-05-08 05:00] VITALS: BP 126/64
[2024-05-08 06:28] LABS: BASOPHILS ABSOLUTE AUTO 0.03 K/mm3 (0.00-0.23); BASOPHILS PERCENT AUTO 0 % (0-2); EOSINOPHILS PERCENT AUTO 2 % (0-6); Hematocrit 43.4 % (37.0-53.0); Hemoglobin 13.3 g/dL (13.5-17.5); IMMATURE GRAN ABSOLUTE AUTO 0.06 K/mm3 (0.00-0.10); IMMATURE GRAN PERCENT AUTO 1 % (0-1); LYMPHOCYTES ABSOLUTE AUTO 0.81 K/mm3 (0.84-5.20); LYMPHOCYTES PERCENT AUTO 8 % (21-46); MONOCYTES ABSOLUTE AUTO 0.96 K/mm3 (0.16-1.47); MONOCYTES PERCENT AUTO 10 % (4-13); Mean Corpuscular HGB 28.5 pg (26.0-34.0); Mean Corpuscular HGB Conc 30.6 g/dL (31.5-36.5); Mean Corpuscular Volume 93 fL (80-100); Mean Platelet Volume 10.4 fL (9.1-12.4); NEUTROPHILS ABSOLUTE AUTO 8.08 K/mm3 (1.96-9.15); NEUTROPHILS PERCENT AUTO 80 % (41-73); Platelet Count 166 K/mm3 (150-400); RDW Coefficient Variation 13.7 % (11.7-14.2); RDW Standard Deviation 46.5 fL (35.1-46.3); Red Blood Cell Count 4.67 M/mm3 (4.30-5.90); White Blood Cell Count 10.14 K/mm3 (4.00-11.30)
--- NOTE | 2024-05-08 06:44 | NUR ---
END OF SHIFT SUMMARY PT A&O TO SELF ONLY. PT FREQUENTLY YELLING OUT, NEEDS REORIENTATION. WANTING TO PUT ON SHOES TO LEAVE. PT ALSO MAKING REMARKS ABOUT "CATHERINE COMING TO TAKE MY MEDICINE. IM NOT SCARED HES GOING TO HURT ME. IM SCARED HE'S GOING TO HURT YOU". PT REMAINS ON 2.5L O2, ON CONT PULSE OX. SOME BRIEF EPISODES OF DESAT, RECOVERED QUICKLY. PT WORE BIPAP FOR APPROX 4 HOURS DURING NIGHT. BOATENG REMAINS IN PLACE. NO BM THIS SHIFT.
[2024-05-08 06:56] LABS: Bun/Creatinine Ratio 37.3 (12.0-20.0); Calcium, Blood 9.4 mg/dL (8.5-10.1); Creatinine, Blood 0.8 mg/dL (0.60-1.20); Potassium, Blood 3.5 mmol/L (3.5-5.5)
[2024-05-08 07:29] VITALS: BP 136/73
[2024-05-08 15:08] VITALS: BP 124/76
[2024-05-08 19:03] VITALS: BP 124/85
--- NOTE | 2024-05-08 19:22 | NUR ---
pt to [facility] this fr[facility]. has no complaints of pain yet abd has been very distended several times throughout the shift pt has been able to tell me he needed to use the bedpan and did so successfully, stool is very watery and clear. other than pt confusion he has vss and able to make needs known. pt also has been having bouts of confusion and delusions. pt is speaking with people who are not in the room, also seeing rats in the corner of the room. pt also having delusopns that he is being chased after his oral potassium pill and that if he takes it they will kill him for his potassium in his blood. I was unsuccessfull in dissuading pt otherwise, so evening potassium dose was refused
[2024-05-09 03:16] VITALS: BP 148/82
--- NOTE | 2024-05-09 05:51 | NUR ---
END OF SHIFT SUMMARY PT A&O TO PERSON. CALLING/YELLING OUT FREQUENTLY. PT WORE BIPAP FOR APPROX 5 HOURS OFF AND ON THROUGH NIGHT, OTHERWISE ON 3L VIA NC. ON CONT PULSE OX MONITORING, ONLY DESAT OBSERVED WAS DUE TO PT REMOVING OXYGEN/BIPAP. 2 LOOSE/WATERY BM THROUGH NIGHT. PT ABLE TO STATE HE NEEDED TO HAVE BM AND WAS PLACED ON BEDPAN. NOOB. NO ACUTE EVENTS OVERNIGHT.
[2024-05-09 07:09] VITALS: BP 131/79
[2024-05-09] MEDS ORDERED: Docusate Sodium/Senna 1 Tab PO PRN (10:05)
[2024-05-09] MEDS ORDERED: Bisacodyl 10 MG Supp PR PRN (10:05)
[2024-05-09] MEDS ORDERED: OLANZapine 10 MG Tab PO SCH (17:00)
[2024-05-09] MEDS ORDERED: Furosemide 40 MG Tab PO SCH (18:00)
--- NOTE | 2024-05-09 19:09 | NUR ---
report received verified, pt a/o x2 remembers me but not the situation nor where he is at. noted to dr that pt abd very distended so suppository was given. pt has had 5-6 soft mucusy stools since suppository, pt continuously screaming out for me even after i explained the button and the problem with yelling my name he still continues to scream. pt understands what he is doing and laughs at times when i enter the room stating that he has to scream because i wont come help. i explained to pt several times i had other pt to tend to but he stated he didnt care. i will continuoly attempt to check on pt every hour or when i havew time. family at beside and stated they understood and this wouldnt be his first time acting this way. other than that pt cooperative with care and at time have some delusions and paranoia.
[2024-05-09 19:34] VITALS: BP 136/69
[2024-05-10 03:14] VITALS: BP 130/76
[2024-05-10 05:11] LABS: BASOPHILS ABSOLUTE AUTO 0.03 K/mm3 (0.00-0.23); BASOPHILS PERCENT AUTO 0 % (0-2); EOSINOPHILS ABSOLUTE AUTO 0.24 K/mm3 (0.00-0.68); EOSINOPHILS PERCENT AUTO 3 % (0-6); Hematocrit 43.9 % (37.0-53.0); Hemoglobin 13.5 g/dL (13.5-17.5); IMMATURE GRAN ABSOLUTE AUTO 0.08 K/mm3 (0.00-0.10); IMMATURE GRAN PERCENT AUTO 1 % (0-1); LYMPHOCYTES PERCENT AUTO 10 % (21-46); MONOCYTES ABSOLUTE AUTO 0.87 K/mm3 (0.16-1.47); MONOCYTES PERCENT AUTO 10 % (4-13); Mean Corpuscular HGB 28.7 pg (26.0-34.0); Mean Corpuscular HGB Conc 30.8 g/dL (31.5-36.5); Mean Corpuscular Volume 93 fL (80-100); Mean Platelet Volume 10.1 fL (9.1-12.4); NEUTROPHILS ABSOLUTE AUTO 6.73 K/mm3 (1.96-9.15); NEUTROPHILS PERCENT AUTO 76 % (41-73); Platelet Count 156 K/mm3 (150-400); RDW Coefficient Variation 13.6 % (11.7-14.2); RDW Standard Deviation 46.9 fL (35.1-46.3); White Blood Cell Count 8.85 K/mm3 (4.00-11.30)
[2024-05-10 05:45] LABS: Bun/Creatinine Ratio 29.8 (12.0-20.0); Calcium, Blood 8.5 mg/dL (8.5-10.1); Creatinine, Blood 0.77 mg/dL (0.60-1.20); Potassium, Blood 3.1 mmol/L (3.5-5.5)
--- NOTE | 2024-05-10 05:56 | NUR ---
END OF SHIFT SUMMARY PT ALERT, ORIENTED TO SELF AND SOMETIMES PLACE. PT HAD EPISODE OF AGITATION AND COMBATIVENESS AT 0230 AFTER SLEEPING FOR 3.5 HOURS WELL ON BIPAP. PT ATTEMPTED TO HIT THIS RN AND WAS NOT REDIRECTABLE, REMOVING BIPAP AND REFUSING NC DESPITE OBVIOUS SOB AND OXYGEN DESAT TO 83%. PT LATER BECAME MORE COOPERATIVE, ALLOWING CARE. PT HAD VERY LARGE LOOSE BROWN INCONTINENT BM THIS AM. ABD STILL DISTENDED BUT MORE SOFT.
[2024-05-10 08:09] VITALS: BP 102/60
[2024-05-10] MEDS ORDERED: Acetaminophen325 M1 PO (11:34)
[2024-05-10] MEDS ORDERED: ONELAX10 MG PR (11:44)
[2024-05-10] MEDS ORDERED: DOCUZEN 8.6-501 EACH PO (11:47)
[2024-05-10] MEDS ORDERED: MELATONIN5 M1 PO (11:51)
[2024-05-10] MEDS ORDERED: OLAN10 PO (11:54)
[2024-05-10] MEDS ORDERED: CEPH500 PO (11:55)
[2024-05-10] MEDS ORDERED: VISBIOME 112.51 EACH PO (11:55)
[2024-05-10] MEDS ORDERED: MORP20L PO (11:56)
[2024-05-10] MEDS ORDERED: Ativan1 MG PO (11:56)
--- NOTE | 2024-05-10 12:13 | NUR ---
DISCHARGE A&OX1-2, CONFUSED, ABLE TO BE REDIRECTED. NO ACUTE EVENTS THIS SHIFT. DENIED ANY CP/PRESSURE, HEADACHE, OR DIZZINESS. SOB AND TACHYPNEA AT TIMES. ON 3L VIA NC WITH SATS >92%. EDEMA TO BLE. REDNESS TO RLE. PATIENT PICKED UP BY AMBULANCE AT 1200.
== END 2024-05-10 11:57 | disposition hospice, home (50) | DRG 947 ==
LOC: MEDS 15:01
PROVIDERS: ADMIT Family Medicine
PROC: 5A09457 Assistance with Respiratory Ventilation, 24-96 Consecutive Hours, Continuous Positive Airway Pressure (ICD-10-PCS; principal; 2024-05-05)
DX: R60.0 Localized edema (principal); G92.8 Other toxic encephalopathy; J96.01 Acute respiratory failure with hypoxia; E87.29 Other acidosis; F03.911 Unspecified dementia, unspecified severity, with agitation; F05 Delirium due to known physiological condition; L03.115 Cellulitis of right lower limb; I48.20 Chronic atrial fibrillation, unspecified; S70.12XA Contusion of left thigh, initial encounter; W18.30XA Fall on same level, unspecified, initial encounter; Z91.81 History of falling; Z78.1 Physical restraint status; Z51.5 Encounter for palliative care; R00.1 Bradycardia, unspecified; E87.6 Hypokalemia; N40.0 Benign prostatic hyperplasia without lower urinary tract symptoms; E66.01 Morbid (severe) obesity due to excess calories; G47.30 Sleep apnea, unspecified; Z96.642 Presence of left artificial hip joint; Z91.199 Patient's noncompliance with other medical treatment and regimen due to unspecified reason; Z96.651 Presence of right artificial knee joint; Z87.891 Personal history of nicotine dependence; Z66 Do not resuscitate; Z79.01 Long term (current) use of anticoagulants; Z79.84 Long term (current) use of oral hypoglycemic drugs; Z79.899 Other long term (current) drug therapy
CPT/HCPCS: 36415; 71045; 73701; 80048; 80053; 82803; 83036; 83735; 83880; 84443; 85025; 93005; 93010; 93971; 94640; 94660; 94664; 94760; 94762; 97110; 97129; 97130; 97162; 97167; 97530; A9270; C8929; J0690; J1630; J1940; J2060; J7050; Q9957; Q9967

== ENCOUNTER 2024-05-10 22:36 | Emergency (ER) | payer OTHER ==
[~2024-05-10] VITALS: Ht 185.4 cm; Wt 113.4 kg
[~2024-05-10 22:36] MED LIST: Acetaminophen325 M1 PO; Ativan1 MG PO; CARV6.25 PO; CEPH500 PO; DOCUZEN 8.6-501 EACH PO; ELIQUIS5 M2 PO; FURO20 PO; JARDIANCE10 MG PO; MELATONIN5 M1 PO; MORP20L PO; OLAN10 PO; ONELAX10 MG PR; POTCHL20ER PO; QUET25 PO; SPIR25 PO; TAMS.4ER PO; VISBIOME 112.51 EACH PO
[2024-05-10] MEDS ORDERED: NS 1,000 ML IV SCH (22:40)
[2024-05-10] MEDS ORDERED: QUEtiapine Fumarate 25 MG Tab PO ONE (22:55)
[2024-05-10] MEDS ORDERED: Melatonin 5 MG Tablet PO ONE (22:55)
[2024-05-10] MEDS ORDERED: OLANZapine 10 MG Tab PO ONE (22:55)
== END 2024-05-11 02:38 | disposition home or self-care (01) ==
LOC: ER 22:36
DX: R45.1 Restlessness and agitation (principal); Z79.899 Other long term (current) drug therapy
CPT/HCPCS: 93005; 93010; 99285-25; A9270